=== PATIENT | male | born 1990 | race Caucasian/White ===

== ENCOUNTER 2022-01-24 10:02 | Outpatient (CLI) | payer BC | END 2022-01-24 10:03 | disposition home or self-care (01) | LOC: CSHRAD 10:02 | PROVIDERS: ATTEND Chiropractor | DX: M54.50 Low back pain, unspecified (principal) | CPT/HCPCS: 72100 ==

== ENCOUNTER 2024-05-30 19:57 | Emergency (ER) | payer OTHER | END 2024-05-30 22:43 | disposition home or self-care (01) | LOC: CSHERS 19:57 | DX: S16.1XXA Strain of muscle, fascia and tendon at neck level, initial encounter (principal); I10 Essential (primary) hypertension; V89.2XXA Person injured in unspecified motor-vehicle accident, traffic, initial encounter | CPT/HCPCS: 72125 ==